=== PATIENT | male | born 1990 | race Caucasian/White ===

== ENCOUNTER 2016-12-09 18:37 | Emergency (ER) | payer OTHER ==
--- NOTE | 2016-12-09 19:05 | EDM.PDOC ---
ED HPI GENERAL MEDICAL PROBLEM - General Chief Complaint: Lower Extremity Injury/Pain Stated Complaint: RIGHT ANKLE PAIN Time Seen by Provider: 12/09/16 18:54 Source of Information: Reports: Patient History Limitations: Reports: No Limitations - History of Present Illness INITIAL COMMENTS - FREE TEXT/NARRATIVE: HISTORY AND PHYSICAL: []26-year-old male presenting with right ankle pain History of Present Illness:" []Last night while stepping out of the bathtub he slipped on the wet floor and the "outside of his ankle hit the toilet" He continues to have pain to this area Review of Systems: As per history of present illness and below otherwise all systems reviewed and negative. Past medical history: As per history of present illness and as reviewed below otherwise noncontributory. Surgical history: As per history of present illness and as reviewed below otherwise noncontributory. Social history: No reported history of drug or alcohol abuse. Family history: As per history of present illness and as reviewed below otherwise noncontributory. Physical exam: Alert and over dramatic male, answers questions appropriately HEENT: Atraumatic, normocehpalic, pupils reactive, negative for conjunctival pallor or scleral icterus, mucous membranes moist, throat clear, neck supple, nontender, trachea midline. Lungs: Clear to auscultation, breath sounds equal bilaterally, chest non tender. Heart: S1S2, regular, negative for clicks, rubs, or JVD. Abdomen: Soft, nondistended, nontender. Negative for masses or hepatossplenmegaly. Negative for costovertebral tenderness. Pelvis: Stable nontender. Genitourinary: Deferred. Rectal: Deferred Extremities: Mild edema to the lateral malleolus, exquisitely tender upon palpation, flexion and extension of present, pedal pulses present, sensation intact, negative for cords or calf pain. Neurovascular unremarkable. Neuro: Awake, alert, oriented. Cranial nerves II through XII unremarkable. Cerebellum unremarkable. Motor and sensory unremarkable throughout. Exam nonfocal. Diagnostics: [X-ray right ankle] Therapeutics: [] Impression: Contusion right ankle] Plan: [Home anti-inflammatories Ice and elevate as needed follow-up with your primary care provider next week ] Definitive disposition and diagnosis as appropriate pending reevaluation and review of above. Onset: Sudden (Yesterday) Duration: Day(s): (1) Location: Reports: Lower Extremity, Right right ankle Pain Score (Numeric/FACES): 8 - Related Data Allergies Allergy/AdvReac Type Severity Reaction Status Date / Time cefaclor [From Ceclor] Allergy Hives Verified 12/09/16 18:51 Home Meds: Home Meds . [No Known Home Meds] 12/22/15 [History] Past Medical History - Past Health History Medical/Surgical History: Denies Medical/Surgical History - Past Surgical History GI Surgical History: Reports: Hernia Repair/Other Social & Family History - Family History Family Medical History: Noncontributory - Tobacco Use Smoking Status *Q: Current Every Day Smoker Years of Tobacco use: 8 Packs/Tins Daily: 0.5 - Recreational Drug Use Recreational Drug Use: No Review of Systems - Review of Systems Review Of Systems: ROS reveals no pertinent complaints other than HPI. ED EXAM, GENERAL - Physical Exam Exam: See Below (See dictation) Course - Vital Signs Last Recorded V/S: Last Vital Signs Temp 36.7 C 12/09/16 18:52 Pulse 84 12/09/16 18:52 Resp 18 12/09/16 18:52 BP 131/80 12/09/16 18:52 Pulse Ox 96 12/09/16 18:52 - Orders/Labs/Meds Orders: Active Orders 24 hr Category Date Time Status Ankle Min 3V Rt [CR] Stat Exams 12/09/16 18:41 Taken Departure - Departure Time of Disposition: 19:33 Disposition: Home, Self-Care 01 Condition: Good Clinical Impression: Contusion of right ankle Qualifiers: Encounter type: initial encounter Qualified Code(s): S90.01XA - Contusion of right ankle, initial encounter - Discharge Information Forms: ED Department Discharge Additional Instructions: The following information is given to patients seen in the emergency department who are being discharged to home. This information is to outline your options for follow-up care. We provide all patients seen in our emergency department with a follow-up referral. The need for follow-up, as well as the timing and circumstances, are variable depending upon the specifics of your emergency department visit. If you don't have a primary care physician on staff, we will provide you with a referral. We always advise you to contact your personal physician following an emergency department visit to inform them of the circumstance of the visit and for follow-up with them and/or the need for any referrals to a consulting specialist. The emergency department will also refer you to a specialist when appropriate. This referral assures that you have the opportunity for followup care with a specialist. All of these measure are taken in an effort to provide you with optimal care, which includes your followup. Under all circumstances we always encourage you to contact your private physician who remains a resource for coordinating your care. When calling for followup care, please make the office aware that this follow-up is from your recent emergency room visit. If for any reason you are refused follow-up, please contact the [facility] emergency department at and asked to speak to the emergency department charge nurse. Xzol-tss-marhshw ibuprofen 3 tablets 3 times daily Elevate and ice your ankle 3 times a day Follow-up with your primary care provider next week - My Orders Last 24 Hours: My Active Orders 12/09/16 18:41 Ankle Min 3V Rt [CR] Stat - Assessment/Plan Last 24 Hours: My Active Orders 12/09/16 18:41 Ankle Min 3V Rt [CR] Stat
[2016-12-09 19:47] VITALS: BP 138/79
--- NOTE | 2016-12-10 10:02 | CR ---
EXAM DATE: 12/09/16 PATIENT'S AGE: 26 Patient: ALLAN GARZA Facility: [place], [place] Site . Site : 1990 Study: XRay Extremity ankle [id number]/[id number] 7:07:42 PM Ordering Physician: Doctor Rascon Final Report: Indication: Fell in shower Technique: Three views right ankle Comparison: None Findings: Bones: Alignment is normal. No fractures or bone lesions. Joint spaces: Unremarkable. Soft tissues: Unremarkable. Impression: Negative. Dictated by Evette Matthews MD @ Dec 09 2016 7:28PM (Electronic Signature) Report Signed by Proxy. IAN
== END 2016-12-09 19:42 | disposition home or self-care (01) ==
LOC: MW.ED 18:37
DX: S90.01XA Contusion of right ankle, initial encounter (principal); F17.210 Nicotine dependence, cigarettes, uncomplicated; Z98.890 Other specified postprocedural states; W01.198A Fall on same level from slipping, tripping and stumbling with subsequent striking against other object, initial encounter
CPT/HCPCS: 73610-26-RT; 73610-RT; 99282; 99283

== ENCOUNTER 2016-12-16 05:16 | Emergency (ER) | payer OTHER ==
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
[2016-12-16 06:01] VITALS: BP 134/82
== END 2016-12-16 05:55 ==
LOC: MW.ED 05:16
DX: Z02.89 Encounter for other administrative examinations (principal); I10 Essential (primary) hypertension; Z98.890 Other specified postprocedural states; Z88.1 Allergy status to other antibiotic agents
CPT/HCPCS: 82962; 99282; 99283

== ENCOUNTER 2017-01-01 02:56 | Emergency (ER) | payer OTHER ==
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
[2017-01-01 03:13] VITALS: BP 122/69
== END 2017-01-01 03:28 ==
LOC: MW.ED 02:56
DX: S02.5XXA Fracture of tooth (traumatic), initial encounter for closed fracture (principal); S01.511A Laceration without foreign body of lip, initial encounter; S09.93XA Unspecified injury of face, initial encounter; S70.311A Abrasion, right thigh, initial encounter; Z88.1 Allergy status to other antibiotic agents; X58.XXXA Exposure to other specified factors, initial encounter
CPT/HCPCS: 99283; 99284

== ENCOUNTER 2017-01-15 07:46 | Inpatient (IN) | payer OTHER ==
[2017-01-15] MEDS ORDERED: Sodium Chloride 0.9% 1,000 ML IV ONE (07:59)
[2017-01-15] MEDS ORDERED: HYDROmorphone 1 MG/ML Syringe IM ONE ×2 (08:00→11:40)
[2017-01-15] MEDS ORDERED: HYDROmorphone 1 MG/ML Syringe IVPUSH STA (08:16)
--- NOTE | 2017-01-15 08:24 | EDM.PDOC ---
ED HPI GENERAL MEDICAL PROBLEM - General Chief Complaint: Skin Complaint Stated Complaint: SWOLLEN LEFT HAND Time Seen by Provider: 01/15/17 08:09 Source of Information: Reports: Patient History Limitations: Reports: No Limitations - History of Present Illness INITIAL COMMENTS - FREE TEXT/NARRATIVE: HISTORY AND PHYSICAL: History of present illness: This is a 26-year-old male presenting to the emergency department complaining of left fifth digit pain and swelling for the past 1-2 days now. She tells me that it began with a possible spider bite, and it progressively began to swell more and more to the point where he can't flex or extend his finger. Complains of pain about 8 out of 10. Denies any numbness or tingling, denies any wrist pain. Denies any other joint pain. Otherwise, denies any chest pain shortness of breath nausea or vomiting. Denies any fevers or chills. Review of systems: As per history of present illness and below otherwise all systems reviewed and negative. Past medical history: As per history of present illness and as reviewed below otherwise noncontributory. Surgical history: As per history of present illness and as reviewed below otherwise noncontributory. Social history: No reported history of drug or alcohol abuse. Family history: As per history of present illness and as reviewed below otherwise noncontributory. Physical exam: HEENT: Atraumatic, normocephalic, pupils reactive, negative for conjunctival pallor or scleral icterus, mucous membranes moist, throat clear, neck supple, nontender, trachea midline. Lungs: Clear to auscultation, breath sounds equal bilaterally, chest nontender. Heart: S1S2, regular, negative for clicks, rubs, or JVD. Abdomen: Soft, nondistended, nontender. Negative for masses or hepatosplenomegaly. Negative for costovertebral tenderness. Pelvis: Stable nontender. Genitourinary: Deferred. Rectal: Deferred. Extremities: Significantly Indurated, erythematous left hand fifth digit extending over onto the dorsal aspect of the hand towards the wrist. Flexion extension at the wrist appears to be intact along with the remaining digits. Neuro: Awake, alert, oriented. Cranial nerves II through XII unremarkable. Cerebellum unremarkable. Motor and sensory unremarkable throughout. Exam nonfocal. Diagnostics: CBC CMP left hand x-ray, PT/INR, blood cultures, lactic acid, urine drug screen Therapeutics: 0.5 Dilaudid IV IV normal saline bolus IV vancomycin Impression: Left hand cellulitis of the fifth digit Plan: Admit to observation for IV antibiotics. Case was discussed with the resident physician who agrees to take this patient for further management. Left Hand Pain Score (Numeric/FACES): 8 - Related Data Allergies Allergy/AdvReac Type Severity Reaction Status Date / Time cefaclor [From [facility]] Allergy Hives Verified 01/15/17 07:58 CDT Home Meds: Home Meds . [No Known Home Meds] 12/22/15 [History] Past Medical History - Past Health History Medical/Surgical History: Denies Medical/Surgical History HEENT History: Reports: None Cardiovascular History: Reports: Hypertension Respiratory History: Reports: None Gastrointestinal History: Reports: None Genitourinary History: Reports: None Musculoskeletal History: Reports: None Neurological History: Reports: None Psychiatric History: Reports: None Endocrine/Metabolic History: Reports: None Hematologic History: Reports: None Immunologic History: Reports: None Oncologic (Cancer) History: Reports: None Dermatologic History: Reports: None - Infectious Disease History Infectious Disease History: Reports: Chicken Pox - Past Surgical History Cardiovascular Surgical History: Reports: None GI Surgical History: Reports: Hernia Repair/Other Social & Family History - Family History Family Medical History: Noncontributory - Tobacco Use Smoking Status *Q: Current Every Day Smoker Years of Tobacco use: 5 Packs/Tins Daily: 0.5 Second Hand Smoke Exposure: No - Caffeine Use Caffeine Use: Reports: Coffee Caffeine Use Comment: 1cup/day - Recreational Drug Use Recreational Drug Use: No Recreational Drug Type: Reports: Marijuana/Hashish, Xanax ED ROS GENERAL - Review of Systems Review Of Systems: See Below (See history of present illness) ED EXAM, SKIN/RASH Exam: See Below (See history of present illness) Exam Limited By: No Limitations General Appearance: Alert, WD/WN, No Apparent Distress Ears: Normal External Exam, Normal Canal, Hearing Grossly Normal, Normal TMs Nose: Normal Inspection, Normal Mucosa, No Blood Throat/Mouth: Normal Inspection, Normal Lips, Normal Teeth, Normal Gums, Normal Oropharynx, Normal Voice, No Airway Compromise Head: Atraumatic, Normocephalic Neck: Normal Inspection, Supple, Non-Tender, Full Range of Motion Respiratory/Chest: No Respiratory Distress, Lungs Clear, Normal Breath Sounds, No Accessory Muscle Use, Chest Non-Tender Cardiovascular: Normal Peripheral Pulses, Regular Rate, Rhythm, No Edema, No Gallop, No JVD, No Murmur, No Rub GI/Abdominal: Normal Bowel Sounds, Soft, Non-Tender, No Organomegaly, No Distention, No Abnormal Bruit, No Mass (Male) Exam: No Hernia, Normal Inspection, Normal Prostate, Circumcised Rectal (Males) Exam: Normal Exam, Normal Rectal Tone, Prostate Normal Back Exam: Normal Inspection, Full Range of Motion, NT Extremities: Normal Inspection, Normal Range of Motion, Non-Tender, No Pedal Edema, Normal Capillary Refill Neurological: Alert, Oriented, CN II-XII Intact, Normal Cognition, Normal Gait, Normal Reflexes, No Motor/Sensory Deficits Psychiatric: Normal Affect, Normal Mood Lymphatic: No Adenopathy Course - Vital Signs Text/Narrative:: This is a 26-year-old male presented to the emergency department with chief complaint of fifth digit left hand pain and swelling for the past day. On physical exam given the extensive induration and erythema around the dorsal aspect of the fifth digit extending down towards the wrist, and surgery was consult to who came down to the ER and examine the patient in person and recommended observation and IV antibiotics. Patient agreed to the plan and passes ultimately admitted to the hospitalist for observation. Hand x-ray was taken in the ER indicating no gas pattern or acute fracture. Last Recorded V/S: Last Vital Signs Temp 36.2 C 01/15/17 11:58 CDT Pulse 84 01/15/17 11:58 CDT Resp 20 01/15/17 11:58 CDT BP 135/97 H 01/15/17 11:58 CDT Pulse Ox 98 01/15/17 11:58 CDT - Orders/Labs/Meds Orders: Medication Orders Acetaminophen (Tylenol) 650 mg PO Q4H PRN PRN Reason: Pain (Mild 1-3)/fever Enoxaparin Sodium (Lovenox) 40 mg SUBCUT DAILY [facility] Last Admin: 01/15/17 12:25 CDT Dose: 40 mg Hydromorphone HCl (Dilaudid) 1 mg IVPUSH Q4H PRN PRN Reason: Pain (severe 7-10) Sodium Chloride (Normal Saline) 1,000 mls @ 125 mls/hr IV NOW STA Stop: 01/15/17 17:14 CDT Last Admin: 01/15/17 09:16 CDT Dose: 125 mls/hr Piperacillin Sod/Tazobactam (Sod 3.375 gm/ Sodium Chloride) 50 mls @ 100 mls/ hr IV Q6H [facility] Last Admin: 01/15/17 12:24 CDT Dose: 100 mls/hr Vancomycin HCl 1 gm/ Sodium (Chloride) 250 mls @ 166.667 mls/hr IV Q8H [facility] Last Admin: 01/15/17 12:56 CDT Dose: 166.667 mls/hr Nicotine (Habitrol) 21 mg TRDERM DAILY [facility] Last Admin: 01/15/17 12:20 CDT Dose: 21 mg Ondansetron HCl (Zofran Odt) 4 mg PO Q4H PRN PRN Reason: nausea, able to take PO Vancomycin HCl (Pharmacy To Dose - Vancomycin) 1 dose .XX ASDIRECTED [facility] Labs: Laboratory Tests 01/15/17 Range/Units 08:08 CDT Lactate 1.6 (0.20-2.00) mmol/L Meds: Medications Generic Name Dose Route Start Last Admin Trade Name Freq PRN Reason Stop Dose Admin Acetaminophen 650 mg 01/15/17 11:40 CDT Tylenol PO Q4H PRN Pain (Mild 1-3)/fever Enoxaparin Sodium 40 mg 01/15/17 11:45 CDT 01/15/17 12:25 CDT Lovenox SUBCUT 40 mg DAILY [facility] Administration Hydromorphone HCl 1 mg 01/15/17 11:40 CDT Dilaudid IVPUSH Q4H PRN Pain (severe 7-10) Sodium Chloride 1,000 mls @ 125 mls/hr 01/15/17 09:15 CDT 01/15/17 09:16 CDT Normal Saline IV 01/15/17 17:14 CDT 125 mls/hr NOW STA Administration Piperacillin Sod/Tazobactam 50 mls @ 100 mls/hr 01/15/17 12:00 CDT 01/15/17 12:24 CDT Sod 3.375 gm/ Sodium Chloride IV 100 mls/hr Q6H [facility] Administration Vancomycin HCl 1 gm/ Sodium 250 mls @ 166.667 mls/hr 01/15/17 12:30 CDT 01/15 12:56 CDT Chloride IV 166.667 mls/hr Q8H [facility] Administration Nicotine 21 mg 01/15/17 11:45 CDT 01/15/17 12:20 CDT Habitrol TRDERM 21 mg DAILY [facility] Administration Ondansetron HCl 4 mg 01/15/17 11:40 CDT Zofran Odt PO Q4H PRN nausea, able to take PO Vancomycin HCl 1 dose 01/15/17 11:45 CDT Pharmacy To Dose - Vancomycin .XX ASDIRECTED [facility] Discontinued Medications Generic Name Dose Route Start Last Admin Trade Name Freq PRN Reason Stop Dose Admin Hydromorphone HCl 0.5 mg 01/15/17 08:16 CDT 01/15/17 08:16 CDT Dilaudid IVPUSH 01/15/17 08:17 CDT 0.5 mg NOW STA Administration Hydromorphone HCl 1 mg 01/15/17 11:40 CDT 01/15/17 12:17 CDT Dilaudid IM 01/15/17 11:41 CDT Not Given ONETIME ONE Hydromorphone HCl 1 mg 01/15/17 12:12 CDT 01/15/17 12:14 CDT Dilaudid IVPUSH 01/15/17 12:13 CDT 1 mg ONETIME ONE Administration Sodium Chloride 1,000 mls @ 999 mls/hr 01/15/17 07:59 CDT 01/15/17 08:23 CDT Normal Saline IV 01/15/17 08:59 CDT 999 mls/hr STAT ONE Administration Vancomycin HCl 1 gm/ Sodium 250 mls @ 250 mls/hr 01/15/17 08:23 CDT 01/15/17 09:17 CDT Chloride IV 01/15/17 09:22 CDT 250 mls/hr ONETIME ONE Administration Naloxone HCl 0.4 mg 01/15/17 09:24 CDT 01/15/17 10:01 CDT Narcan IVPUSH 01/15/17 09:25 CDT Not Given ONETIME ONE Departure - Departure Time of Disposition: 10:30 Disposition: Refer to Observation Condition: Fair Clinical Impression: Cellulitis of finger of left hand - Discharge Information
--- NOTE | 2017-01-15 08:46 | CR ---
EXAMINATION: Left hand HISTORY: Cellulitis COMPARISON: None TECHNIQUE: 2 views FINDINGS/IMPRESSION: There is no acute osseous abnormality, dislocation, or fracture. The cortical ma rgin of the distal fifth phalanx on the lateral view appears concave, however well-corticated, possib ly secondary to an old injury. There is overlying soft tissue swelling within the fat within the righ t aspect of the hand and within the fifth digit without underlying gas or foreign body.
[2017-01-15 09:00] LABS: CHLORIDE,CL 106 mmol/L (98-110); SODIUM,NA 139 mmol/L (136-146)
[2017-01-15] MEDS ORDERED: Sodium Chloride 0.9% 1,000 ML IV STA (09:15)
[2017-01-15] MEDS ORDERED: Naloxone 0.4 MG/ML Syringe IVPUSH ONE (09:24)
--- NOTE | 2017-01-15 11:55 | PCM.HP ---
H&P History of Present Illness - General Date of Service: 01/15/17 Admit Problem/Dx: Admission Diagnosis/Problem Admission Diagnosis/Problem Cellulitis Source of Information: Patient History Limitations: Reports: No Limitations - History of Present Illness Initial Comments - Free Text/Narative: 26-year-old male that is being admitted with cellulitis of the fifth digit of the left hand. Patient presented to the emergency room complaining of swelling and redness to the fifth digit of the left hand over the last 2 days that has been worsening. Patient cannot recall any trauma or injuries to the fifth digit. He notes pain in this digit only and denies any pain in his left wrist or other fingers. He has no history of cellulitis. He denies any history of IV drug use. Pain is described as 8 out of 10. He has had a fever over the last few days. He has been using only Tylenol or ibuprofen for pain relief. This has not helped. Apart from the acute pain he is experiencing, he denies any other concerns including headache, dizziness, chest pain, palpitations, shortness breath, wheezing, cough, abdominal pain, nausea, vomiting, cuts patient, diarrhea. ER course: Patient received a dose of Dilaudid in the emergency room secondary to pain. He also received an IV fluid bolus and was started on maintenance fluids at 125 mL/ hour. He was given 1 dose of vancomycin. Blood cultures were obtained. Drug screen was positive for benzodiazepines and marijuana. White blood cell count was elevated at 14,000. Lactate was normal at 1.6. CMP was unremarkable. Left hand x-ray showed soft tissue swelling at the fifth digit and no evidence of bone involvement, gas or evidence of a foreign body. Dr. Leon, plastic surgeon , was consulted on the case and does not believe that surgical intervention is needed at this time. Left Hand Pain Score (Numeric/FACES): 7 - Related Data Allergies/Adverse Reactions: Allergies Allergy/AdvReac Type Severity Reaction Status Date / Time cefaclor [From [facility]] Allergy Hives Verified 01/15/17 07:58 Home Medications: Home Meds . [No Known Home Meds] 12/22/15 [History] Past Medical History - Past Health History Medical/Surgical History: Denies Medical/Surgical History HEENT History: Reports: None Cardiovascular History: Reports: Hypertension Respiratory History: Reports: None Gastrointestinal History: Reports: None Genitourinary History: Reports: None Musculoskeletal History: Reports: None Neurological History: Reports: None Psychiatric History: Reports: None Endocrine/Metabolic History: Reports: None Hematologic History: Reports: None Immunologic History: Reports: None Oncologic (Cancer) History: Reports: None Dermatologic History: Reports: None - Infectious Disease History Infectious Disease History: Reports: Chicken Pox - Past Surgical History Cardiovascular Surgical History: Reports: None GI Surgical History: Reports: Hernia Repair/Other Social & Family History - Family History Family Medical History: Noncontributory - Tobacco Use Smoking Status *Q: Current Every Day Smoker Years of Tobacco use: 7 Packs/Tins Daily: 0.5 Second Hand Smoke Exposure: Yes - Caffeine Use Caffeine Use: Reports: None Caffeine Use Comment: 1cup/day - Alcohol Use Days Per Week of Alcohol Use: 1 Number of Drinks Per Day: 0 Total Drinks Per Week: 0 Date of Last Drink: 01/13/17 Time of Last Drink: 18:00 - Recreational Drug Use Recreational Drug Use: No Recreational Drug Type: Reports: Marijuana/Hashish, Xanax H&P Review of Systems - Review of Systems: Review Of Systems: See Below General: Reports: Fever HEENT: Reports: No Symptoms Pulmonary: Reports: No Symptoms Cardiovascular: Reports: No Symptoms Gastrointestinal: Reports: No Symptoms Genitourinary: Reports: No Symptoms Musculoskeletal: Reports: Other (Pain, redness and swelling at the left fifth digit ) Skin: Reports: No Symptoms Psychiatric: Reports: No Symptoms Neurological: Reports: No Symptoms Hematologic/Lymphatic: Reports: No Symptoms Immunologic: Reports: No Symptoms Exam - Exam Exam: See Below - Vital Signs Vital Signs: Last Vital Signs Temp 98 F 01/15/17 10:20 Pulse 85 01/15/17 10:20 Resp 20 01/15/17 10:20 BP 130/84 01/15/17 10:20 Pulse Ox 98 01/15/17 10:20 Weight: 154 lb 5.177 oz - Exam Quality Assessment: DVT Prophylaxis (Lovenox, SCDs) General: Alert, Oriented, Cooperative HEENT: Conjunctiva Clear, Hearing Intact, Mucosa Moist & [place], Nares Patent Neck: Supple, Trachea Midline, 2 Lungs: Clear to Auscultation, Normal Respiratory Effort Cardiovascular: Regular Rate, Regular Rhythm GI/Abdominal Exam: Normal Bowel Sounds, Soft, Non-Tender, No Organomegaly, No Distention, No Abnormal Bruit, No Mass Extremities: Other (The left hand is edematous up to the wrist. The left fifth digit is erythematous and the patient has a difficult time with flexion or extension of the digit. There is warmth to palpation of this digit. Patient is able to flex and extend his left wrist. No other joints appear to be edematous, erythematous or warm to palpation. I do not appreciate any breaks in the skin.) Peripheral Pulses: 2+: Radial (L), Radial (R), Posterior Tibial (L), Posterior Tibial (R) Skin: Other (Redness and warmth with palpation over the left fifth digit.) Neuro Extensive - Mental Status: Alert, Oriented x3, Normal Mood/Affect, Normal Cognition Psychiatric: Alert, Normal Affect, Normal Mood - Patient Data Lab Results Last 24 hrs: Laboratory Results - last 24 hr 01/15/17 01/15/17 01/15/17 Range/Units 08:28 08:28 08:28 WBC 14.33 H (4.0-11.0) K/uL RBC 4.86 (4.50-5.90) M/uL Hgb 15.4 (13.0-17.0) g/dL Hct 43.8 (38.0-50.0) % MCV 90.1 (80.0-98.0) fL MCH 31.7 (27.0-32.0) pg MCHC 35.2 (31.0-37.0) g/dL RDW Std Deviation 43.6 (28.0-62.0) fl RDW Coeff of Jovanni 13 (11.0-15.0) % Plt Count 358 (150-400) K/uL MPV 8.90 (7.40-12.00) fL Neut % (Auto) 67.3 (48.0-80.0) % Lymph % (Auto) 18.8 (16.0-40.0) % Crisp % (Auto) 12.1 (0.0-15.0) % Eos % (Auto) 1.7 (0.0-7.0) % Baso % (Auto) 0.1 (0.0-1.5) % Neut # (Auto) 9.6 H (1.4-5.7) K/uL Lymph # (Auto) 2.7 H (0.6-2.4) K/uL Crisp # (Auto) 1.7 H (0.0-0.8) K/uL Eos # (Auto) 0.2 (0.0-0.7) K/uL Baso # (Auto) 0.0 (0.0-0.1) K/uL Nucleated RBC % 0.0 /100WBC Nucleated RBCs # 0 K/uL INR 0.97 (0.86-1.11) Sodium 139 (136-146) mmol/L Potassium 4.0 (3.5-5.1) mmol/L Chloride 106 (98-110) mmol/L Carbon Dioxide 21 (21-31) mmol/L BUN 10 (6.0-23.0) mg/dL Creatinine 0.8 (0.6-1.5) mg/dL Est Cr Clr Drug Dosing 125.16 mL/min Estimated GFR (MDRD) > 60.0 ml/min Glucose 109 (60-110) mg/dL Calcium 9.1 (8.8-10.8) mg/dL Total Bilirubin 0.2 (0.1-1.5) mg/dL AST 17 (5-40) IU/L ALT 16 (8-54) IU/L Alkaline Phosphatase 78 (40-150) Total Protein 6.6 (6.0-8.0) g/dL Albumin 4.1 (3.5-5.0) g/dL Globulin 2.5 (2.0-3.5) g/dL Albumin/Globulin Ratio 1.6 (1.3-2.8) Urine Opiates Screen (NEGATIVE) Ur Oxycodone Screen (NEGATIVE) Urine Methadone Screen (NEGATIVE) Ur Barbiturates Screen (NEGATIVE) Ur Phencyclidine Scrn (NEGATIVE) Ur Amphetamine Screen (NEGATIVE) U Methamphetamines Scrn (NEGATIVE) U Benzodiazepines Scrn (NEGATIVE) U Cocaine Metab Screen (NEGATIVE) U Marijuana (THC) Screen (NEGATIVE) 01/15/17 Range/Units 08:40 WBC (4.0-11.0) K/uL RBC (4.50-5.90) M/uL Hgb (13.0-17.0) g/dL Hct (38.0-50.0) % MCV (80.0-98.0) fL MCH (27.0-32.0) pg MCHC (31.0-37.0) g/dL RDW Std Deviation (28.0-62.0) fl RDW Coeff of Jovanni (11.0-15.0) % Plt Count (150-400) K/uL MPV (7.40-12.00) fL Neut % (Auto) (48.0-80.0) % Lymph % (Auto) (16.0-40.0) % Crisp % (Auto) (0.0-15.0) % Eos % (Auto) (0.0-7.0) % Baso % (Auto) (0.0-1.5) % Neut # (Auto) (1.4-5.7) K/uL Lymph # (Auto) (0.6-2.4) K/uL Crisp # (Auto) (0.0-0.8) K/uL Eos # (Auto) (0.0-0.7) K/uL Baso # (Auto) (0.0-0.1) K/uL Nucleated RBC % /100WBC Nucleated RBCs # K/uL INR (0.86-1.11) Sodium (136-146) mmol/L Potassium (3.5-5.1) mmol/L Chloride (98-110) mmol/L Carbon Dioxide (21-31) mmol/L BUN (6.0-23.0) mg/dL Creatinine (0.6-1.5) mg/dL Est Cr Clr Drug Dosing mL/min Estimated GFR (MDRD) ml/min Glucose (60-110) mg/dL Calcium (8.8-10.8) mg/dL Total Bilirubin (0.1-1.5) mg/dL AST (5-40) IU/L ALT (8-54) IU/L Alkaline Phosphatase (40-150) Total Protein (6.0-8.0) g/dL Albumin (3.5-5.0) g/dL Globulin (2.0-3.5) g/dL Albumin/Globulin Ratio (1.3-2.8) Urine Opiates Screen NEGATIVE (NEGATIVE) Ur Oxycodone Screen NEGATIVE (NEGATIVE) Urine Methadone Screen NEGATIVE (NEGATIVE) Ur Barbiturates Screen NEGATIVE (NEGATIVE) Ur Phencyclidine Scrn NEGATIVE (NEGATIVE) Ur Amphetamine Screen NEGATIVE (NEGATIVE) U Methamphetamines Scrn NEGATIVE (NEGATIVE) U Benzodiazepines Scrn POSITIVE (NEGATIVE) U Cocaine Metab Screen NEGATIVE (NEGATIVE) U Marijuana (THC) Screen POSITIVE (NEGATIVE) Result Diagrams: 01/15/17 08:28 01/15/17 08:28 *Q Meaningful Use (ADM) - VTE *Q VTE Criteria *Q: - Stroke *Q Stroke Criteria *Q: - AMI *Q AMI Criteria *Q: - Problem List (1) Cellulitis of hand, left SNOMED Code(s): 10445362 ICD Code: L03.114 - CELLULITIS OF LEFT UPPER LIMB Status: Acute Current Visit: Yes Problem List Initiated/Reviewed/Updated: Yes Orders Last 24hrs: Active Orders 24 hr Category Date Time Status Patient Status [ADT] Routine ADT 01/15/17 08:24 Active Antiembolic Devices [RC] PER UNIT ROUTINE Care 01/15/17 11:43 Ordered Height and Weight [RC] DAILY Care 01/15/17 11:40 Ordered Intake and Output [RC] QSHIFT Care 01/15/17 11:41 Ordered Notify Provider Consults [RC] ASDIRECTED Care 01/15/17 11:36 Active Notify Provider Vital Signs [RC] ASDIRECTED Care 01/15/17 11:41 Ordered Oxygen Therapy [RC] PRN Care 01/15/17 11:40 Ordered Pulse Oximetry [RC] PRN Care 01/15/17 11:41 Ordered Up ad Linda [RC] ASDIRECTED Care 01/15/17 11:40 Ordered VTE/DVT Education [RC] PER UNIT ROUTINE Care 01/15/17 11:40 Ordered Vital Signs [RC] Q4H Care 01/15/17 11:40 Ordered Consult to Physician [CONS] Stat Cons 01/15/17 07:30 Active Regular Diet [DIET] Diet 01/15/17 Breakfast Ordered BASIC METABOLIC PANEL,BMP [CHEM] AM Lab 01/16/17 05:11 Ordered BASIC METABOLIC PANEL,BMP [CHEM] AM Lab 01/17/17 05:11 Ordered BASIC METABOLIC PANEL,BMP [CHEM] AM Lab 01/18/17 05:11 Ordered CBC WITH AUTO DIFF [HEME] AM Lab 01/16/17 05:11 Ordered CBC WITH AUTO DIFF [HEME] AM Lab 01/17/17 05:11 Ordered CBC WITH AUTO DIFF [HEME] AM Lab 01/18/17 05:11 Ordered Acetaminophen [Tylenol] Med 01/15/17 11:40 Ordered 650 mg PO Q4H PRN Enoxaparin [Lovenox] Med 01/15/17 11:45 Ordered 40 mg SUBCUT DAILY HYDROmorphone [Dilaudid] Med 01/15/17 11:40 Ordered 1 mg IVPUSH Q4H PRN Nicotine [Habitrol] Med 01/15/17 11:45 Ordered 21 mg TRDERM DAILY Ondansetron [Zofran ODT] Med 01/15/17 11:40 Ordered 4 mg PO Q4H PRN Piperacillin/Tazobactam [Piperacil-Tazobact] 3.375 gm Med 01/15/17 11:45 Ordered Sodium Chloride 0.9% [Normal Saline] 50 ml IV Q6H Sodium Chloride 0.9% [Normal Saline] 1,000 ml Med 01/15/17 09:15 Active IV NOW Vancomycin Pharmacy to Dose [Pharmacy to Dose - Med 01/15/17 11:45 Ordered Vancomycin] 1 dose .XX ASDIRECTED Sequential Compression Device [OM.PC] Per Unit Routine Oth 01/15/17 11:42 Ordered Resuscitation Status Routine Resus Stat 01/15/17 11:40 Ordered Medication Orders Acetaminophen (Tylenol) 650 mg PO Q4H PRN PRN Reason: Pain (Mild 1-3)/fever Enoxaparin Sodium (Lovenox) 40 mg SUBCUT DAILY [facility] Hydromorphone HCl (Dilaudid) 1 mg IVPUSH Q4H PRN PRN Reason: Pain (severe 7-10) Sodium Chloride (Normal Saline) 1,000 mls @ 125 mls/hr IV NOW STA Stop: 01/15/17 17:14 Last Admin: 01/15/17 09:16 Dose: 125 mls/hr Piperacillin Sod/Tazobactam (Sod 3.375 gm/ Sodium Chloride) 50 mls @ 100 mls/ hr IV Q6H [facility] Nicotine (Habitrol) 21 mg TRDERM DAILY [facility] Ondansetron HCl (Zofran Odt) 4 mg PO Q4H PRN PRN Reason: nausea, able to take PO Vancomycin HCl (Pharmacy To Dose - Vancomycin) 1 dose .XX ASDIRECTED [facility] Assessment/Plan Comment:: 26-year-old male admitted with cellulitis of the fifth digit of the left hand. #1. Cellulitis of fifth digit of the left hand: -Patient will be started on vancomycin and Zosyn. White blood cell count is elevated at 14,000. Repeat CBC in the morning. -IV Dilaudid available for pain management. Will switch to by mouth once pain is better controlled. -Blood cultures are pending. Lactate was normal. -Dr. Leon, plastic surgery, was consult did and does not believe that surgical intervention is needed at this time. DVT prophylaxis: Anamaria Mcfarland Discharge: 2-4 days pending improvement
[2017-01-15] MEDS ORDERED: HYDROmorphone 1 MG/ML Syringe IVPUSH ONE (12:12)
[2017-01-15] MEDS: Nicotine 21 MG/24 Hr Patch TRDERM SCH (12:20)
[2017-01-15] MEDS: Piperacillin/Tazobactam 3.375 GM in Sodium Chloride 0.9% 50 ML IV SCH ×3 (12:24→23:25)
[2017-01-15] MEDS: Enoxaparin 40 MG/0.4 ML Syringe SUBCUT SCH (12:25)
--- NOTE | 2017-01-15 14:26 | PCM.CONS ---
H&P History of Present Illness - General Admit Problem/Dx: Admission Diagnosis/Problem Admission Diagnosis/Problem Cellulitis Source of Information: Patient, EMS, Provider - History of Present Illness Initial Comments - Free Text/Narative: Redness and swelling of the left small finger dorsally. Quick onset. History of mrsa in the left eye about a year ago. No volar involvement of the finger or hand. Discussed no surgical intervention at this time for the cellulitis. No lymphangitis. I would recommend antibiotics and observation. Discussed with patient. Onset of Symptoms: Reports: Sudden Symptom Onset Date: 01/14/17 Duration of Symptoms: Reports: Day(s): (1), Getting Worse Location: Reports: Upper Extremity, Left Quality: Reports: Ache, Throbbing Severity: Severe Improves with: Reports: Immobilization Worsens with: Reports: Movement Associated Symptoms: Reports: No Other Symptoms Left Hand Pain Score (Numeric/FACES): 8 - Related Data Allergies/Adverse Reactions: Allergies Allergy/AdvReac Type Severity Reaction Status Date / Time cefaclor [From Ceclor] Allergy Hives Verified 01/15/17 07:58 Home Medications: Home Meds . [No Known Home Meds] 12/22/15 [History] Past Medical History - Past Health History Medical/Surgical History: Denies Medical/Surgical History HEENT History: Reports: None Cardiovascular History: Reports: Hypertension Respiratory History: Reports: None Gastrointestinal History: Reports: None Genitourinary History: Reports: None Musculoskeletal History: Reports: None Neurological History: Reports: None Psychiatric History: Reports: None Endocrine/Metabolic History: Reports: None Hematologic History: Reports: None Immunologic History: Reports: None Oncologic (Cancer) History: Reports: None Dermatologic History: Reports: None - Infectious Disease History Infectious Disease History: Reports: Chicken Pox - Past Surgical History Cardiovascular Surgical History: Reports: None GI Surgical History: Reports: Hernia Repair/Other Social & Family History - Family History Family Medical History: Noncontributory - Tobacco Use Smoking Status *Q: Current Every Day Smoker Years of Tobacco use: 5 Packs/Tins Daily: 0.5 Second Hand Smoke Exposure: No - Caffeine Use Caffeine Use: Reports: Coffee Caffeine Use Comment: 1cup/day - Alcohol Use Days Per Week of Alcohol Use: 1 Number of Drinks Per Day: 0 Total Drinks Per Week: 0 Date of Last Drink: 01/13/17 Time of Last Drink: 18:00 - Recreational Drug Use Recreational Drug Use: No Recreational Drug Type: Reports: Marijuana/Hashish, Xanax H&P Review of Systems - Review of Systems: Review Of Systems: See Below General: Reports: No Symptoms. Denies: Fever Pulmonary: Reports: No Symptoms Cardiovascular: Reports: No Symptoms Psychiatric: Reports: Anxiety, Other (denies IV drug use) Immunologic: Reports: No Symptoms Exam - Exam Exam: See Below - Vital Signs Vital Signs: Last Vital Signs Temp 97.2 F 01/15/17 11:58 Pulse 84 01/15/17 11:58 Resp 20 01/15/17 11:58 BP 135/97 H 01/15/17 11:58 Pulse Ox 98 01/15/17 11:58 Weight: 154 lb 5.177 oz - Exam General: Alert, Oriented, Mild Distress HEENT: EOMI Lungs: Normal Respiratory Effort Extremities: Normal Range of Motion, Other (increased swelling of the left small finger dorsally with redness. Limited to Proximal phalanx area. Tender over dorsal metacarpal but not redness yet. No lymphangitis. ) Skin: Warm, Dry, Other (redness over the small finger dorsally. No volar involvement. no volar tenderness. ). No: Rash, Wound Neuro Extensive - Mental Status: Alert, Oriented x3 Psychiatric: Alert, Anxious - Patient Data Lab Results Last 24 hrs: Laboratory Results - last 24 hr 01/15/17 01/15/17 01/15/17 Range/Units 08:28 08:28 08:28 WBC 14.33 H (4.0-11.0) K/uL RBC 4.86 (4.50-5.90) M/uL Hgb 15.4 (13.0-17.0) g/dL Hct 43.8 (38.0-50.0) % MCV 90.1 (80.0-98.0) fL MCH 31.7 (27.0-32.0) pg MCHC 35.2 (31.0-37.0) g/dL RDW Std Deviation 43.6 (28.0-62.0) fl RDW Coeff of Jovanni 13 (11.0-15.0) % Plt Count 358 (150-400) K/uL MPV 8.90 (7.40-12.00) fL Neut % (Auto) 67.3 (48.0-80.0) % Lymph % (Auto) 18.8 (16.0-40.0) % [place] % (Auto) 12.1 (0.0-15.0) % Eos % (Auto) 1.7 (0.0-7.0) % Baso % (Auto) 0.1 (0.0-1.5) % Neut # (Auto) 9.6 H (1.4-5.7) K/uL Lymph # (Auto) 2.7 H (0.6-2.4) K/uL [place] # (Auto) 1.7 H (0.0-0.8) K/uL Eos # (Auto) 0.2 (0.0-0.7) K/uL Baso # (Auto) 0.0 (0.0-0.1) K/uL Nucleated RBC % 0.0 /100WBC Nucleated RBCs # 0 K/uL INR 0.97 (0.86-1.11) Sodium 139 (136-146) mmol/L Potassium 4.0 (3.5-5.1) mmol/L Chloride 106 (98-110) mmol/L Carbon Dioxide 21 (21-31) mmol/L BUN 10 (6.0-23.0) mg/dL Creatinine 0.8 (0.6-1.5) mg/dL Est Cr Clr Drug Dosing 125.16 mL/min Estimated GFR (MDRD) > 60.0 ml/min Glucose 109 (60-110) mg/dL Calcium 9.1 (8.8-10.8) mg/dL Total Bilirubin 0.2 (0.1-1.5) mg/dL AST 17 (5-40) IU/L ALT 16 (8-54) IU/L Alkaline Phosphatase 78 (40-150) Total Protein 6.6 (6.0-8.0) g/dL Albumin 4.1 (3.5-5.0) g/dL Globulin 2.5 (2.0-3.5) g/dL Albumin/Globulin Ratio 1.6 (1.3-2.8) Urine Opiates Screen (NEGATIVE) Ur Oxycodone Screen (NEGATIVE) Urine Methadone Screen (NEGATIVE) Ur Barbiturates Screen (NEGATIVE) Ur Phencyclidine Scrn (NEGATIVE) Ur Amphetamine Screen (NEGATIVE) U Methamphetamines Scrn (NEGATIVE) U Benzodiazepines Scrn (NEGATIVE) U Cocaine Metab Screen (NEGATIVE) U Marijuana (THC) Screen (NEGATIVE) 01/15/17 Range/Units 08:40 WBC (4.0-11.0) K/uL RBC (4.50-5.90) M/uL Hgb (13.0-17.0) g/dL Hct (38.0-50.0) % MCV (80.0-98.0) fL MCH (27.0-32.0) pg MCHC (31.0-37.0) g/dL RDW Std Deviation (28.0-62.0) fl RDW Coeff of Jovanni (11.0-15.0) % Plt Count (150-400) K/uL MPV (7.40-12.00) fL Neut % (Auto) (48.0-80.0) % Lymph % (Auto) (16.0-40.0) % [place] % (Auto) (0.0-15.0) % Eos % (Auto) (0.0-7.0) % Baso % (Auto) (0.0-1.5) % Neut # (Auto) (1.4-5.7) K/uL Lymph # (Auto) (0.6-2.4) K/uL [place] # (Auto) (0.0-0.8) K/uL Eos # (Auto) (0.0-0.7) K/uL Baso # (Auto) (0.0-0.1) K/uL Nucleated RBC % /100WBC Nucleated RBCs # K/uL INR (0.86-1.11) Sodium (136-146) mmol/L Potassium (3.5-5.1) mmol/L Chloride (98-110) mmol/L Carbon Dioxide (21-31) mmol/L BUN (6.0-23.0) mg/dL Creatinine (0.6-1.5) mg/dL Est Cr Clr Drug Dosing mL/min Estimated GFR (MDRD) ml/min Glucose (60-110) mg/dL Calcium (8.8-10.8) mg/dL Total Bilirubin (0.1-1.5) mg/dL AST (5-40) IU/L ALT (8-54) IU/L Alkaline Phosphatase (40-150) Total Protein (6.0-8.0) g/dL Albumin (3.5-5.0) g/dL Globulin (2.0-3.5) g/dL Albumin/Globulin Ratio (1.3-2.8) Urine Opiates Screen NEGATIVE (NEGATIVE) Ur Oxycodone Screen NEGATIVE (NEGATIVE) Urine Methadone Screen NEGATIVE (NEGATIVE) Ur Barbiturates Screen NEGATIVE (NEGATIVE) Ur Phencyclidine Scrn NEGATIVE (NEGATIVE) Ur Amphetamine Screen NEGATIVE (NEGATIVE) U Methamphetamines Scrn NEGATIVE (NEGATIVE) U Benzodiazepines Scrn POSITIVE (NEGATIVE) U Cocaine Metab Screen NEGATIVE (NEGATIVE) U Marijuana (THC) Screen POSITIVE (NEGATIVE) Result Diagrams: 01/15/17 08:28 01/15/17 08:28 Consult PN Assessment/Plan Procedures: Procedures (1) Cellulitis of finger of left hand SNOMED Code(s): 06648483 Code(s): L03.012 - CELLULITIS OF LEFT FINGER Priority: High Current Visit : Yes Problem List Initiated/Reviewed/Updated: Yes Plan: I would recommend medical management and see no indication for surgery at this time. IV antibiotics and elevation. Requesting Provider: aleyda Consult Requested: 01/15/17 Reason for Consult: cellulitis hand Patient History Reviewed: Yes Admission H&P Reviewed: Yes Notified Requestor: Yes Time Spent (in minutes): 20
[2017-01-15] MEDS: Acetaminophen 325 MG Tab PO PRN (14:28)
[2017-01-15] MEDS: HYDROmorphone 2 MG/ML Syringe IVPUSH PRN ×2 (18:21→22:33)
[2017-01-15] MEDS: Ondansetron 4 MG Tab.DIS PO PRN (18:23)
[2017-01-16] MEDS: HYDROmorphone 2 MG/ML Syringe IVPUSH PRN ×5 (02:37→19:49)
[2017-01-16 05:44] LABS: CHLORIDE,CL 100 mmol/L (98-110); SODIUM,NA 138 mmol/L (136-146)
[2017-01-16] MEDS: Piperacillin/Tazobactam 3.375 GM in Sodium Chloride 0.9% 50 ML IV SCH ×3 (05:50→17:23)
--- NOTE | 2017-01-16 08:55 | PCM.SN ---
- Free Text/Narrative Note: Improving on antibiotics. Focalizing some. May develop and abscess that will likely be small over the proximal phalanx of the small finger. Should this focalize more we can I and D, but will wait for improvement and hopefully avoid opening a wound for him. He would like to continue antibiotics for now. All questions answered.
--- NOTE | 2017-01-16 09:03 | PCM.PN ---
- Review of Systems Systems Review Comment:: reports pain has improved - Patient Data Vitals - Most Recent: Last Vital Signs Temp 36.1 C 01/16/17 08:00 Pulse 95 01/16/17 08:00 Resp 20 01/16/17 08:00 BP 166/96 H 01/16/17 08:00 Pulse Ox 98 01/16/17 08:00 Weight - Most Recent: 70 kg I&O - Last 24 Hours: Intake & Output 01/15/17 01/16/17 01/16/17 22:59 06:59 14:59 Intake Total 1150 1050 Output Total 565 1770 Balance 875 -720 Lab Results Last 24 Hours: Laboratory Results - last 24 hr 01/15/17 01/15/17 01/16/17 Range/Units 08:28 08:40 04:55 WBC 15.07 H (4.0-11.0) K/uL RBC 4.94 (4.50-5.90) M/uL Hgb 15.7 (13.0-17.0) g/dL Hct 44.5 (38.0-50.0) % MCV 90.1 (80.0-98.0) fL MCH 31.8 (27.0-32.0) pg MCHC 35.3 (31.0-37.0) g/dL RDW Std Deviation 43.2 (28.0-62.0) fl RDW Coeff of Jovanni 13 (11.0-15.0) % Plt Count 342 (150-400) K/uL MPV 9.10 (7.40-12.00) fL Neut % (Auto) 74.8 (48.0-80.0) % Lymph % (Auto) 12.8 L (16.0-40.0) % [place] % (Auto) 10.7 (0.0-15.0) % Eos % (Auto) 1.6 (0.0-7.0) % Baso % (Auto) 0.1 (0.0-1.5) % Neut # (Auto) 11.3 H (1.4-5.7) K/uL Lymph # (Auto) 1.9 (0.6-2.4) K/uL [place] # (Auto) 1.6 H (0.0-0.8) K/uL Eos # (Auto) 0.2 (0.0-0.7) K/uL Baso # (Auto) 0.0 (0.0-0.1) K/uL Nucleated RBC % 0.0 /100WBC Nucleated RBCs # 0 K/uL Sodium 139 (136-146) mmol/L Potassium 4.0 (3.5-5.1) mmol/L Chloride 106 (98-110) mmol/L Carbon Dioxide 21 (21-31) mmol/L BUN 10 (6.0-23.0) mg/dL Creatinine 0.8 (0.6-1.5) mg/dL Est Cr Clr Drug Dosing 125.16 mL/min Estimated GFR (MDRD) > 60.0 ml/min Glucose 109 (60-110) mg/dL Calcium 9.1 (8.8-10.8) mg/dL Total Bilirubin 0.2 (0.1-1.5) mg/dL AST 17 (5-40) IU/L ALT 16 (8-54) IU/L Alkaline Phosphatase 78 (40-150) Total Protein 6.6 (6.0-8.0) g/dL Albumin 4.1 (3.5-5.0) g/dL Globulin 2.5 (2.0-3.5) g/dL Albumin/Globulin Ratio 1.6 (1.3-2.8) Urine Opiates Screen NEGATIVE (NEGATIVE) Ur Oxycodone Screen NEGATIVE (NEGATIVE) Urine Methadone Screen NEGATIVE (NEGATIVE) Ur Barbiturates Screen NEGATIVE (NEGATIVE) Ur Phencyclidine Scrn NEGATIVE (NEGATIVE) Ur Amphetamine Screen NEGATIVE (NEGATIVE) U Methamphetamines Scrn NEGATIVE (NEGATIVE) U Benzodiazepines Scrn POSITIVE (NEGATIVE) U Cocaine Metab Screen NEGATIVE (NEGATIVE) U Marijuana (THC) Screen POSITIVE (NEGATIVE) 01/16/17 Range/Units 04:55 WBC (4.0-11.0) K/uL RBC (4.50-5.90) M/uL Hgb (13.0-17.0) g/dL Hct (38.0-50.0) % MCV (80.0-98.0) fL MCH (27.0-32.0) pg MCHC (31.0-37.0) g/dL RDW Std Deviation (28.0-62.0) fl RDW Coeff of Jovanni (11.0-15.0) % Plt Count (150-400) K/uL MPV (7.40-12.00) fL Neut % (Auto) (48.0-80.0) % Lymph % (Auto) (16.0-40.0) % [place] % (Auto) (0.0-15.0) % Eos % (Auto) (0.0-7.0) % Baso % (Auto) (0.0-1.5) % Neut # (Auto) (1.4-5.7) K/uL Lymph # (Auto) (0.6-2.4) K/uL [place] # (Auto) (0.0-0.8) K/uL Eos # (Auto) (0.0-0.7) K/uL Baso # (Auto) (0.0-0.1) K/uL Nucleated RBC % /100WBC Nucleated RBCs # K/uL Sodium 138 (136-146) mmol/L Potassium 4.1 (3.5-5.1) mmol/L Chloride 100 (98-110) mmol/L Carbon Dioxide 29 (21-31) mmol/L BUN 5 L (6.0-23.0) mg/dL Creatinine 0.8 (0.6-1.5) mg/dL Est Cr Clr Drug Dosing 125.16 mL/min Estimated GFR (MDRD) > 60.0 ml/min Glucose 92 (60-110) mg/dL Calcium 9.3 (8.8-10.8) mg/dL Total Bilirubin (0.1-1.5) mg/dL AST (5-40) IU/L ALT (8-54) IU/L Alkaline Phosphatase (40-150) Total Protein (6.0-8.0) g/dL Albumin (3.5-5.0) g/dL Globulin (2.0-3.5) g/dL Albumin/Globulin Ratio (1.3-2.8) Urine Opiates Screen (NEGATIVE) Ur Oxycodone Screen (NEGATIVE) Urine Methadone Screen (NEGATIVE) Ur Barbiturates Screen (NEGATIVE) Ur Phencyclidine Scrn (NEGATIVE) Ur Amphetamine Screen (NEGATIVE) U Methamphetamines Scrn (NEGATIVE) U Benzodiazepines Scrn (NEGATIVE) U Cocaine Metab Screen (NEGATIVE) U Marijuana (THC) Screen (NEGATIVE) Joao Results Last 24 Hours: Microbiology 01/15/17 08:28 Aerobic Blood Culture - Preliminary Blood - Venous NO GROWTH AFTER 1 DAY Anaerobic Blood Culture - Preliminary NO GROWTH AFTER 1 DAY Med Orders - Current: Current Medications Acetaminophen (Tylenol) 650 mg PO Q4H PRN PRN Reason: Pain (Mild 1-3)/fever Last Admin: 01/15/17 14:28 Dose: 650 mg Enoxaparin Sodium (Lovenox) 40 mg SUBCUT DAILY [facility] Last Admin: 01/15/17 12:25 Dose: 40 mg Hydromorphone HCl (Dilaudid) 1 mg IVPUSH Q4H PRN PRN Reason: Pain (severe 7-10) Last Admin: 01/16/17 06:46 Dose: 1 mg Piperacillin Sod/Tazobactam (Sod 3.375 gm/ Sodium Chloride) 50 mls @ 100 mls/ hr IV Q6H [facility] Last Infusion: 01/16/17 06:21 Dose: Infused Vancomycin HCl 1 gm/ Sodium (Chloride) 250 mls @ 166.667 mls/hr IV Q8H [facility] Last Infusion: 01/16/17 05:45 Dose: Infused Nicotine (Habitrol) 21 mg TRDERM DAILY [facility] Last Admin: 01/15/17 12:20 Dose: 21 mg Ondansetron HCl (Zofran Odt) 4 mg PO Q4H PRN PRN Reason: nausea, able to take PO Last Admin: 01/15/17 18:23 Dose: 4 mg Vancomycin HCl (Pharmacy To Dose - Vancomycin) 1 dose .XX ASDIRECTED [facility] Discontinued Medications Hydromorphone HCl (Dilaudid) 0.5 mg IVPUSH NOW STA Stop: 01/15/17 08:17 Last Admin: 01/15/17 08:16 Dose: 0.5 mg Hydromorphone HCl (Dilaudid) 1 mg IM ONETIME ONE Stop: 01/15/17 11:41 Last Admin: 01/15/17 12:17 Dose: Not Given Hydromorphone HCl (Dilaudid) 1 mg IVPUSH ONETIME ONE Stop: 01/15/17 12:13 Last Admin: 01/15/17 12:14 Dose: 1 mg Sodium Chloride (Normal Saline) 1,000 mls @ 999 mls/hr IV STAT ONE Stop: 01/15/17 08:59 Last Admin: 01/15/17 08:23 Dose: 999 mls/hr Vancomycin HCl 1 gm/ Sodium (Chloride) 250 mls @ 250 mls/hr IV ONETIME ONE Stop: 01/15/17 09:22 Last Admin: 01/15/17 09:17 Dose: 250 mls/hr Sodium Chloride (Normal Saline) 1,000 mls @ 125 mls/hr IV NOW STA Stop: 01/15/17 17:14 Last Admin: 01/15/17 09:16 Dose: 125 mls/hr Naloxone HCl (Narcan) 0.4 mg IVPUSH ONETIME ONE Stop: 01/15/17 09:25 Last Admin: 01/15/17 10:01 Dose: Not Given - Exam General: Alert, Oriented Lungs: Clear to Auscultation, Normal Respiratory Effort Cardiovascular: Regular Rate, Regular Rhythm GI/Abdominal Exam: Soft Extremities: Other (normal range of motion of fingers, erythema over left fifth proximal metacarpal extending to dorsum of hand, ) - Problem List Review Problem List Initiated/Reviewed/Updated: Yes - My Orders Last 24 Hours: My Active Orders 01/15/17 12:30 Vancomycin [Vancocin] 1 gm Sodium Chloride 0.9% [Normal Saline] 250 ml IV Q8H 01/16/17 11:30 VANCOMYCIN TROUGH [CHEM] Routine - Plan Plan:: 26-year-old male admitted with cellulitis of the fifth digit of the left hand. Will continue vancomycin and zosyn
[2017-01-16] MEDS: Nicotine 21 MG/24 Hr Patch TRDERM SCH (09:28)
[2017-01-16] MEDS: Enoxaparin 40 MG/0.4 ML Syringe SUBCUT SCH (09:30)
[2017-01-16] MEDS: Acetaminophen 325 MG Tab PO PRN ×2 (09:36→19:26)
[2017-01-17] MEDS: Piperacillin/Tazobactam 3.375 GM in Sodium Chloride 0.9% 50 ML IV SCH ×4 (00:11→18:10)
[2017-01-17] MEDS: HYDROmorphone 2 MG/ML Syringe IVPUSH PRN ×5 (03:54→22:24)
[2017-01-17] MEDS: Acetaminophen 325 MG Tab PO PRN ×2 (05:44→11:08)
[2017-01-17 05:53] LABS: CHLORIDE,CL 103 mmol/L (98-110); SODIUM,NA 139 mmol/L (136-146)
[2017-01-17] MEDS: Enoxaparin 40 MG/0.4 ML Syringe SUBCUT SCH (08:40)
[2017-01-17] MEDS: Nicotine 21 MG/24 Hr Patch TRDERM SCH (08:42)
[2017-01-17] MEDS: Ondansetron 4 MG Tab.DIS PO PRN (08:52)
--- NOTE | 2017-01-17 08:58 | PCM.PN ---
- Review of Systems Systems Review Comment:: note purulent drainage from hand - Patient Data Vitals - Most Recent: Last Vital Signs Temp 36.9 C 01/17/17 07:42 Pulse 106 H 01/17/17 07:42 Resp 20 01/17/17 07:42 BP 138/66 01/17/17 07:42 Pulse Ox 97 01/17/17 07:42 Weight - Most Recent: 70 kg I&O - Last 24 Hours: Intake & Output 01/16/17 01/17/17 01/17/17 22:59 06:59 14:59 Intake Total 1068 1900 Output Total 2150 2250 Balance -1082 -350 Lab Results Last 24 Hours: Laboratory Results - last 24 hr 01/16/17 01/17/17 01/17/17 Range/Units 11:21 05:18 05:18 WBC 11.03 H (4.0-11.0) K/uL RBC 5.10 (4.50-5.90) M/uL Hgb 16.3 (13.0-17.0) g/dL Hct 45.7 (38.0-50.0) % MCV 89.6 (80.0-98.0) fL MCH 32.0 (27.0-32.0) pg MCHC 35.7 (31.0-37.0) g/dL RDW Std Deviation 43.1 (28.0-62.0) fl RDW Coeff of Jovanni 13 (11.0-15.0) % Plt Count 347 (150-400) K/uL MPV 8.90 (7.40-12.00) fL Neut % (Auto) 73.6 (48.0-80.0) % Lymph % (Auto) 12.9 L (16.0-40.0) % [place] % (Auto) 11.8 (0.0-15.0) % Eos % (Auto) 1.4 (0.0-7.0) % Baso % (Auto) 0.3 (0.0-1.5) % Neut # (Auto) 8.1 H (1.4-5.7) K/uL Lymph # (Auto) 1.4 (0.6-2.4) K/uL [place] # (Auto) 1.3 H (0.0-0.8) K/uL Eos # (Auto) 0.2 (0.0-0.7) K/uL Baso # (Auto) 0.0 (0.0-0.1) K/uL Nucleated RBC % 0.0 /100WBC Nucleated RBCs # 0 K/uL Sodium 139 (136-146) mmol/L Potassium 4.3 (3.5-5.1) mmol/L Chloride 103 (98-110) mmol/L Carbon Dioxide 24 (21-31) mmol/L BUN 8 (6.0-23.0) mg/dL Creatinine 0.7 (0.6-1.5) mg/dL Est Cr Clr Drug Dosing 143.04 mL/min Estimated GFR (MDRD) > 60.0 ml/min Glucose 98 (60-110) mg/dL Calcium 9.2 (8.8-10.8) mg/dL Vancomycin Trough 10.3 (5-15) ug/mL Joao Results Last 24 Hours: Microbiology 01/15/17 08:28 Aerobic Blood Culture - Preliminary Blood - Venous NO GROWTH AFTER 2 DAYS Anaerobic Blood Culture - Preliminary NO GROWTH AFTER 2 DAYS Med Orders - Current: Current Medications Acetaminophen (Tylenol) 650 mg PO Q4H PRN PRN Reason: Pain (Mild 1-3)/fever Last Admin: 01/17/17 05:44 Dose: 650 mg Enoxaparin Sodium (Lovenox) 40 mg SUBCUT DAILY [facility] Last Admin: 01/17/17 08:40 Dose: Not Given Hydromorphone HCl (Dilaudid) 1 mg IVPUSH Q4H PRN PRN Reason: Pain (severe 7-10) Last Admin: 01/17/17 08:41 Dose: 1 mg Piperacillin Sod/Tazobactam (Sod 3.375 gm/ Sodium Chloride) 50 mls @ 100 mls/ hr IV Q6H [facility] Last Admin: 01/17/17 05:39 Dose: 100 mls/hr Vancomycin HCl 1 gm/ Sodium (Chloride) 250 mls @ 166.667 mls/hr IV Q8H [facility] Last Admin: 01/17/17 04:00 Dose: 166.6 mls/hr Nicotine (Habitrol) 21 mg TRDERM DAILY [facility] Last Admin: 01/17/17 08:42 Dose: 21 mg Ondansetron HCl (Zofran Odt) 4 mg PO Q4H PRN PRN Reason: nausea, able to take PO Last Admin: 01/17/17 08:52 Dose: 4 mg Vancomycin HCl (Pharmacy To Dose - Vancomycin) 1 dose .XX ASDIRECTED [facility] Discontinued Medications Hydromorphone HCl (Dilaudid) 0.5 mg IVPUSH NOW STA Stop: 01/15/17 08:17 Last Admin: 01/15/17 08:16 Dose: 0.5 mg Hydromorphone HCl (Dilaudid) 1 mg IM ONETIME ONE Stop: 01/15/17 11:41 Last Admin: 01/15/17 12:17 Dose: Not Given Hydromorphone HCl (Dilaudid) 1 mg IVPUSH ONETIME ONE Stop: 01/15/17 12:13 Last Admin: 01/15/17 12:14 Dose: 1 mg Sodium Chloride (Normal Saline) 1,000 mls @ 999 mls/hr IV STAT ONE Stop: 01/15/17 08:59 Last Admin: 01/15/17 08:23 Dose: 999 mls/hr Vancomycin HCl 1 gm/ Sodium (Chloride) 250 mls @ 250 mls/hr IV ONETIME ONE Stop: 01/15/17 09:22 Last Admin: 01/15/17 09:17 Dose: 250 mls/hr Sodium Chloride (Normal Saline) 1,000 mls @ 125 mls/hr IV NOW STA Stop: 01/15/17 17:14 Last Admin: 01/15/17 09:16 Dose: 125 mls/hr Naloxone HCl (Narcan) 0.4 mg IVPUSH ONETIME ONE Stop: 01/15/17 09:25 Last Admin: 01/15/17 10:01 Dose: Not Given - Exam General: Alert, Oriented Lungs: Clear to Auscultation, Normal Respiratory Effort Cardiovascular: Regular Rate, Regular Rhythm Extremities: Other (edema and erythema of dorsum of hand improving. right fifth proximal metacarpal with tiny focus of purulence that was expressed on exam) - Problem List Review Problem List Initiated/Reviewed/Updated: Yes - My Orders Last 24 Hours: My Active Orders 01/18/17 11:30 VANCOMYCIN TROUGH [CHEM] Routine - Plan Plan:: 26-year-old male admitted with cellulitis of the fifth digit of the left hand. Cellulitis is improving. We will continue vancomycin and zosyn.
--- NOTE | 2017-01-17 17:49 | PCM.PN ---
- General Info Date of Service: 01/17/17 Admission Dx/Problem (Free Text): left small finger cellulitis focalizing some into small abscess. spontaneously draining a small amount Subjective Update: improving pain and much better overall. Draining some from the left small finger wound. Obtained culture and he will start soaks. Functional Status: Reports: Pain Controlled, Tolerating Diet, Ambulating. Denies: New Symptoms - Review of Systems General: Denies: Fever Musculoskeletal: Reports: Hand Pain Skin: Reports: Other (wound draining left small finger) Neurological: Reports: No Symptoms - Patient Data Vitals - Most Recent: Last Vital Signs Temp 96.1 F 01/17/17 15:57 Pulse 89 01/17/17 15:57 Resp 20 01/17/17 15:57 BP 139/94 H 01/17/17 15:57 Pulse Ox 96 01/17/17 15:57 Weight - Most Recent: 154 lb 5.177 oz I&O - Last 24 Hours: Intake & Output 01/17/17 01/17/17 01/17/17 07:59 15:59 23:59 Intake Total 8122 590 1258 Output Total 2250 1800 Balance -350 300 -628 Lab Results Last 24 Hours: Laboratory Results - last 24 hr 01/17/17 01/17/17 Range/Units 05:18 05:18 WBC 11.03 H (4.0-11.0) K/uL RBC 5.10 (4.50-5.90) M/uL Hgb 16.3 (13.0-17.0) g/dL Hct 45.7 (38.0-50.0) % MCV 89.6 (80.0-98.0) fL MCH 32.0 (27.0-32.0) pg MCHC 35.7 (31.0-37.0) g/dL RDW Std Deviation 43.1 (28.0-62.0) fl RDW Coeff of [place]ovanni 13 (11.0-15.0) % Plt Count 347 (150-400) K/uL MPV 8.90 (7.40-12.00) fL Neut % (Auto) 73.6 (48.0-80.0) % Lymph % (Auto) 12.9 L (16.0-40.0) % [place] % (Auto) 11.8 (0.0-15.0) % Eos % (Auto) 1.4 (0.0-7.0) % Baso % (Auto) 0.3 (0.0-1.5) % Neut # (Auto) 8.1 H (1.4-5.7) K/uL Lymph # (Auto) 1.4 (0.6-2.4) K/uL [place] # (Auto) 1.3 H (0.0-0.8) K/uL Eos # (Auto) 0.2 (0.0-0.7) K/uL Baso # (Auto) 0.0 (0.0-0.1) K/uL Nucleated RBC % 0.0 /100WBC Nucleated RBCs # 0 K/uL Sodium 139 (136-146) mmol/L Potassium 4.3 (3.5-5.1) mmol/L Chloride 103 (98-110) mmol/L Carbon Dioxide 24 (21-31) mmol/L BUN 8 (6.0-23.0) mg/dL Creatinine 0.7 (0.6-1.5) mg/dL Est Cr Clr Drug Dosing 143.04 mL/min Estimated GFR (MDRD) > 60.0 ml/min Glucose 98 (60-110) mg/dL Calcium 9.2 (8.8-10.8) mg/dL Joao Results Last 24 Hours: Microbiology 01/15/17 08:28 Aerobic Blood Culture - Preliminary Blood - Venous NO GROWTH AFTER 2 DAYS Anaerobic Blood Culture - Preliminary NO GROWTH AFTER 2 DAYS Med Orders - Current: Current Medications Acetaminophen (Tylenol) 650 mg PO Q4H PRN PRN Reason: Pain (Mild 1-3)/fever Last Admin: 01/17/17 11:08 Dose: 650 mg Enoxaparin Sodium (Lovenox) 40 mg SUBCUT DAILY [facility] Last Admin: 01/17/17 08:40 Dose: Not Given Hydromorphone HCl (Dilaudid) 1 mg IVPUSH Q4H PRN PRN Reason: Pain (severe 7-10) Last Admin: 01/17/17 14:11 Dose: 1 mg Piperacillin Sod/Tazobactam (Sod 3.375 gm/ Sodium Chloride) 50 mls @ 100 mls/ hr IV Q6H [facility] Last Admin: 01/17/17 11:09 Dose: 100 mls/hr Vancomycin HCl 1 gm/ Sodium (Chloride) 250 mls @ 166.667 mls/hr IV Q8H [facility] Last Admin: 01/17/17 12:08 Dose: 166.6 mls/hr Nicotine (Habitrol) 21 mg TRDERM DAILY [facility] Last Admin: 01/17/17 08:42 Dose: 21 mg Ondansetron HCl (Zofran Odt) 4 mg PO Q4H PRN PRN Reason: nausea, able to take PO Last Admin: 01/17/17 08:52 Dose: 4 mg Vancomycin HCl (Pharmacy To Dose - Vancomycin) 1 dose .XX ASDIRECTED [facility] Discontinued Medications Hydromorphone HCl (Dilaudid) 0.5 mg IVPUSH NOW STA Stop: 01/15/17 08:17 Last Admin: 01/15/17 08:16 Dose: 0.5 mg Hydromorphone HCl (Dilaudid) 1 mg IM ONETIME ONE Stop: 01/15/17 11:41 Last Admin: 01/15/17 12:17 Dose: Not Given Hydromorphone HCl (Dilaudid) 1 mg IVPUSH ONETIME ONE Stop: 01/15/17 12:13 Last Admin: 01/15/17 12:14 Dose: 1 mg Sodium Chloride (Normal Saline) 1,000 mls @ 999 mls/hr IV STAT ONE Stop: 01/15/17 08:59 Last Admin: 01/15/17 08:23 Dose: 999 mls/hr Vancomycin HCl 1 gm/ Sodium (Chloride) 250 mls @ 250 mls/hr IV ONETIME ONE Stop: 01/15/17 09:22 Last Admin: 01/15/17 09:17 Dose: 250 mls/hr Sodium Chloride (Normal Saline) 1,000 mls @ 125 mls/hr IV NOW STA Stop: 01/15/17 17:14 Last Admin: 01/15/17 09:16 Dose: 125 mls/hr Naloxone HCl (Narcan) 0.4 mg IVPUSH ONETIME ONE Stop: 01/15/17 09:25 Last Admin: 01/15/17 10:01 Dose: Not Given - Exam General: Alert, Oriented, Cooperative, No Acute Distress Lungs: Normal Respiratory Effort Skin: Warm Wound/Incisions: Drainage (on the left small finger dorsum with milking by the patient. small opening. Minimal drainage. no signs of deeper abscess accumulating. ) Psy/Mental Status: Alert - Problem List & Annotations (1) Cellulitis of finger of left hand SNOMED Code(s): 00278797 Code(s): L03.012 - CELLULITIS OF LEFT FINGER Status: Acute Priority: High Current Visit: Yes - Problem List Review Problem List Initiated/Reviewed/Updated: Yes - My Orders Last 24 Hours: My Active Orders 01/17/17 17:41 Dressing Change [Wound Care] [RC] Q12H 01/17/17 17:42 CULTURE BODY FLUID + SMEAR [RM] Routine GRAM STAIN [RM] Routine - Plan Plan:: 26-year-old male admitted with cellulitis of the fifth digit of the left hand. Cellulitis is improving. Culture of fluid. Feeling much better overall.
[2017-01-18] MEDS: Piperacillin/Tazobactam 3.375 GM in Sodium Chloride 0.9% 50 ML IV SCH ×2 (00:32→06:00)
[2017-01-18] MEDS: HYDROmorphone 2 MG/ML Syringe IVPUSH PRN ×2 (02:37→07:28)
[2017-01-18 06:42] LABS: CHLORIDE,CL 100 mmol/L (98-110); SODIUM,NA 139 mmol/L (136-146)
[2017-01-18] MEDS: Nicotine 21 MG/24 Hr Patch TRDERM SCH (08:49)
[2017-01-18] MEDS: Enoxaparin 40 MG/0.4 ML Syringe SUBCUT SCH (08:53)
[2017-01-18 09:19] VITALS: BP 134/94
--- NOTE | 2017-01-18 10:32 | PCM.DCSUM1 ---
Discharge Summary - Hospital Course Brief History: 26-year-old male that is being admitted with cellulitis of the fifth digit of the left hand. Patient presented to the emergency room complaining of swelling and redness to the fifth digit of the left hand over the last 2 days that has been worsening. Patient cannot recall any trauma or injuries to the fifth digit. He notes pain in this digit only and denies any pain in his left wrist or other fingers. He has no history of cellulitis. He denies any history of IV drug use. Pain is described as 8 out of 10. He has had a fever over the last few days. He has been using only Tylenol or ibuprofen for pain relief. This has not helped. Apart from the acute pain he is experiencing, he denies any other concerns including headache, dizziness, chest pain, palpitations, shortness breath, wheezing, cough, abdominal pain, nausea, vomiting, cuts patient, diarrhea. In the ED, he received a dose of Dilaudid in the emergency room secondary to pain. He also received an IV fluid bolus and was started on maintenance fluids at 125 mL/hour. He was given 1 dose of vancomycin. Blood cultures were obtained. Drug screen was positive for benzodiazepines and marijuana. White blood cell count was elevated at 14,000. Lactate was normal at 1.6. CMP was unremarkable. Left hand x-ray showed soft tissue swelling at the fifth digit and no evidence of bone involvement, gas or evidence of a foreign body. Dr. Leon, plastic surgeon, was consulted on the case and does not believe that surgical intervention is needed at this time. - Discharge Data Discharge Date: 01/18/17 Discharge Disposition: Home, Self-Care 01 Condition: Good - Patient Summary/Data Consults: Consultations 01/15/17 07:30 Consult to Physician [CONS] Stat - Patient Instructions Diet: Regular Diet as Tolerated Activity: As Tolerated, Elevate Extremity (arm to help with swelling), Rest and Relax Today Showering/Bathing: May Shower Notify Provider of: Fever, Increased Pain, Swelling and Redness, Drainage, Nausea and/or Vomiting - Discharge Plan Prescriptions/Med Rec: Sulfamethoxazole/Trimethoprim [Bactrim Ds Tablet] 1 each PO BID #20 tablet Home Medications: Home Meds Acetaminophen [Tylenol] 650 mg PO Q4H PRN #0 tablet 01/18/17 [Rx] Sulfamethoxazole/Trimethoprim [Bactrim Ds Tablet] 1 each PO BID #20 tablet 01/18 [Rx] Patient Handouts: Cellulitis, Adult, [id number], Sulfamethoxazole; Trimethoprim, SMX-TMP tablets Referrals: [place] DO [Physician] - 01/22/17 11:30 am Cassi Leon MD [Physician] - 01/26/17 9:45 am - Discharge Summary/Plan Comment DC Time >30 min.: No Discharge Summary/Plan Comment: Discharge Diagnoses: Cellulitis and abscess of Vilma Lew was treated with vancomycin and Zosyn during his stay. On Wednesday and fluctuant area developed and started draining purulent drainage. Culture was obtained. Overnight patient told nursing he "dug in the wound and pulled out the core with a tweezers". He was educated on not doing this due to risk of re- infecting the area. This morning he is very eager for discharge. Fifth digit dressing removed, and hand soaked in soapy water. There is no further purulent drainage, only serous fluid. Erythema is much improved and patient reports it is pain free, moving his finger many ways and pressing on the surrounding tissues. He will be discharged home today with Bactrim for 10 more days. He is to follow up with PCP in [address] Leon to ensure good healing. He was encouraged to not dig in wound but allow it to heal. Continue soaks and dressing changes. He is to return to ED or clinic if concerns should arise. - General Info Date of Service: 01/19/17 Admission Dx/Problem (Free Text: left small finger cellulitis focalizing some into small abscess. spontaneously draining a small amount Subjective Update: Sitting in the chair, just finishing soaking his L hand. Asking to go home. No complaints of pain, no chest pain or SOB. Functional Status: Reports: Pain Controlled, Tolerating Diet, Ambulating, Urinating - Review of Systems General: Denies: Fever HEENT: Reports: No Symptoms. Denies: Headaches, Sinus Congestion Pulmonary: Reports: No Symptoms. Denies: Shortness of Breath Cardiovascular: Reports: No Symptoms. Denies: Chest Pain Gastrointestinal: Reports: No Symptoms. Denies: Abdominal Pain, Nausea, Vomiting Genitourinary: Reports: No Symptoms. Denies: Dysuria, Frequency, Burning Skin: Reports: Other (wound to L fifth digit) Neurological: Reports: No Symptoms Psychiatric: Reports: No Symptoms - Patient Data Vitals - Most Recent: Last Vital Signs Temp 98.2 F 01/18/17 08:00 Pulse 86 01/18/17 08:00 Resp 16 01/18/17 08:00 BP 134/94 H 01/18/17 08:00 Pulse Ox 97 01/18/17 08:00 Weight - Most Recent: 70 kg I&O - Last 24 hours: Intake & Output 01/17/17 01/18/17 01/18/17 22:59 06:59 14:59 Intake Total 1472 600 Output Total 1800 900 Balance -328 -300 Lab Results - Last 24 hrs: Laboratory Results - last 24 hr 01/18/17 01/18/17 Range/Units 05:26 05:26 WBC 8.21 (4.0-11.0) K/uL RBC 5.09 (4.50-5.90) M/uL Hgb 15.8 (13.0-17.0) g/dL Hct 45.8 (38.0-50.0) % MCV 90.0 (80.0-98.0) fL MCH 31.0 (27.0-32.0) pg MCHC 34.5 (31.0-37.0) g/dL RDW Std Deviation 42.7 (28.0-62.0) fl RDW Coeff of Jovanni 13 (11.0-15.0) % Plt Count 363 (150-400) K/uL MPV 9.20 (7.40-12.00) fL Neut % (Auto) 65.8 (48.0-80.0) % Lymph % (Auto) 19.5 (16.0-40.0) % Gove % (Auto) 12.1 (0.0-15.0) % Eos % (Auto) 2.4 (0.0-7.0) % Baso % (Auto) 0.2 (0.0-1.5) % Neut # (Auto) 5.4 (1.4-5.7) K/uL Lymph # (Auto) 1.6 (0.6-2.4) K/uL Gove # (Auto) 1.0 H (0.0-0.8) K/uL Eos # (Auto) 0.2 (0.0-0.7) K/uL Baso # (Auto) 0.0 (0.0-0.1) K/uL Nucleated RBC % 0.0 /100WBC Nucleated RBCs # 0 K/uL Sodium 139 (136-146) mmol/L Potassium 3.9 (3.5-5.1) mmol/L Chloride 100 (98-110) mmol/L Carbon Dioxide 29 (21-31) mmol/L BUN 16 (6.0-23.0) mg/dL Creatinine 0.8 (0.6-1.5) mg/dL Est Cr Clr Drug Dosing 125.16 mL/min Estimated GFR (MDRD) > 60.0 ml/min Glucose 93 (60-110) mg/dL Calcium 9.6 (8.8-10.8) mg/dL KANDY Results - Last 24 hrs: Microbiology 01/15/17 08:28 Aerobic Blood Culture - Preliminary Blood - Venous NO GROWTH AFTER 3 DAYS Anaerobic Blood Culture - Preliminary NO GROWTH AFTER 3 DAYS 01/17/17 17:45 Gram Stain - Preliminary Abscess - Finger, Pinky, Left Med Orders - Current: Current Medications Acetaminophen (Tylenol) 650 mg PO Q4H PRN PRN Reason: Pain (Mild 1-3)/fever Last Admin: 01/17/17 11:08 Dose: 650 mg Enoxaparin Sodium (Lovenox) 40 mg SUBCUT DAILY [facility] Last Admin: 01/18/17 08:53 Dose: Not Given Hydromorphone HCl (Dilaudid) 1 mg IVPUSH Q4H PRN PRN Reason: Pain (severe 7-10) Last Admin: 01/18/17 07:28 Dose: 1 mg Piperacillin Sod/Tazobactam (Sod 3.375 gm/ Sodium Chloride) 50 mls @ 100 mls/ hr IV Q6H [facility] Last Admin: 01/18/17 06:00 Dose: 100 mls/hr Vancomycin HCl 1 gm/ Sodium (Chloride) 250 mls @ 166.667 mls/hr IV Q8H [facility] Last Admin: 01/18/17 04:16 Dose: 166.6 mls/hr Nicotine (Habitrol) 21 mg TRDERM DAILY [facility] Last Admin: 01/18/17 08:49 Dose: 21 mg Ondansetron HCl (Zofran Odt) 4 mg PO Q4H PRN PRN Reason: nausea, able to take PO Last Admin: 01/17/17 08:52 Dose: 4 mg Vancomycin HCl (Pharmacy To Dose - Vancomycin) 1 dose .XX ASDIRECTED TREVOR Discontinued Medications Hydromorphone HCl (Dilaudid) 0.5 mg IVPUSH NOW STA Stop: 01/15/17 08:17 Last Admin: 01/15/17 08:16 Dose: 0.5 mg Hydromorphone HCl (Dilaudid) 1 mg IM ONETIME ONE Stop: 01/15/17 11:41 Last Admin: 01/15/17 12:17 Dose: Not Given Hydromorphone HCl (Dilaudid) 1 mg IVPUSH ONETIME ONE Stop: 01/15/17 12:13 Last Admin: 01/15/17 12:14 Dose: 1 mg Sodium Chloride (Normal Saline) 1,000 mls @ 999 mls/hr IV STAT ONE Stop: 01/15/17 08:59 Last Admin: 01/15/17 08:23 Dose: 999 mls/hr Vancomycin HCl 1 gm/ Sodium (Chloride) 250 mls @ 250 mls/hr IV ONETIME ONE Stop: 01/15/17 09:22 Last Admin: 01/15/17 09:17 Dose: 250 mls/hr Sodium Chloride (Normal Saline) 1,000 mls @ 125 mls/hr IV NOW STA Stop: 01/15/17 17:14 Last Admin: 01/15/17 09:16 Dose: 125 mls/hr Naloxone HCl (Narcan) 0.4 mg IVPUSH ONETIME ONE Stop: 01/15/17 09:25 Last Admin: 01/15/17 10:01 Dose: Not Given - Exam General: Reports: Alert, Oriented, Cooperative, No Acute Distress Neck: Reports: Supple Lungs: Reports: Clear to Auscultation, Normal Respiratory Effort Cardiovascular: Reports: Regular Rate, Regular Rhythm GI/Abdominal Exam: Normal Bowel Sounds, Soft, Non-Tender, No Organomegaly, No Distention, No Abnormal Bruit, No Mass, Pelvis Stable Skin: Reports: Warm Wound/Incisions: Reports: Healing Well (L fifth digit, open area continues, cellulitis improved. No purulent drainage noted only serous fluid from open area ), Drainage (serous drainage), Erythema Improving Neurological: Reports: No New Focal Deficit Psy/Mental Status: Reports: Alert, Normal Affect, Normal Mood *Q Meaningful Use (DIS) - VTE *Q VTE Criteria *Q: - Stroke *Q Stroke Criteria *Q: - AMI *Q AMI Criteria *Q:
== END 2017-01-18 11:00 | disposition home or self-care (01) | DRG 603 ==
LOC: MW.ED 07:46 → MW.MS 08:24 → EEVIPCON 08:24
PROVIDERS: ADMIT Internal Medicine; ATTEND Internal Medicine
DX: L03.012 Cellulitis of left finger (principal); I10 Essential (primary) hypertension; F17.200 Nicotine dependence, unspecified, uncomplicated; Z88.8 Allergy status to other drugs, medicaments and biological substances
CPT/HCPCS: 36415; 73120-26-LT; 73120-LT; 80048; 80053; 80202; 80305; 83605; 85025; 85610; 87040; 87070; 87077; 87186; 87205; 96361; 96365; 96375; 99283; 99285-25; A9270-GY; J1170; J1650; J2543; J3370; J7040; J7050

== ENCOUNTER 2017-02-12 01:07 | Emergency (ER) | payer OTHER ==
[2017-02-12] MEDS ORDERED: Diphtheria,Pertussis(Acell),Tetanus Vaccine 0.5 ML Syringe IM ONE (01:16)
[2017-02-12] MEDS ORDERED: Bacitracin Oint 1 GM U/D Packet TOP ONE (01:19)
--- NOTE | 2017-02-12 01:20 | EDM.PDOC ---
ED HPI GENERAL MEDICAL PROBLEM - General Chief Complaint: Laceration Stated Complaint: ALCOHOL USE AND A CUT ON RIGHT THUMB Time Seen by Provider: 02/12/17 01:10 Source of Information: Reports: Patient, EMS, RN - History of Present Illness INITIAL COMMENTS - FREE TEXT/NARRATIVE: He accidentally cut the tip of his right thumb off about 3 hours ago. He has been drinking alcohol. - Related Data Allergies Allergy/AdvReac Type Severity Reaction Status Date / Time cefaclor [From Ceclor] Allergy Hives Verified 01/15/17 07:58 Home Meds: Home Meds Acetaminophen [Tylenol] 650 mg PO Q4H PRN #0 tablet 01/18/17 [Rx] Sulfamethoxazole/Trimethoprim [Bactrim Ds Tablet] 1 each PO BID #20 tablet 01/18 [Rx] Past Medical History - Past Health History Medical/Surgical History: Denies Medical/Surgical History HEENT History: Reports: None Cardiovascular History: Reports: Hypertension Respiratory History: Reports: None Gastrointestinal History: Reports: None Genitourinary History: Reports: None Musculoskeletal History: Reports: None Neurological History: Reports: None Psychiatric History: Reports: None Endocrine/Metabolic History: Reports: None Hematologic History: Reports: None Immunologic History: Reports: None Oncologic (Cancer) History: Reports: None Dermatologic History: Reports: None - Infectious Disease History Infectious Disease History: Reports: Chicken Pox - Past Surgical History Cardiovascular Surgical History: Reports: None GI Surgical History: Reports: Hernia Repair/Other Social & Family History - Family History Family Medical History: Noncontributory - Tobacco Use Smoking Status *Q: Current Every Day Smoker Years of Tobacco use: 5 Packs/Tins Daily: 0.5 Second Hand Smoke Exposure: No - Caffeine Use Caffeine Use: Reports: Coffee Caffeine Use Comment: 1cup/day - Alcohol Use Days Per Week of Alcohol Use: 1 Number of Drinks Per Day: 0 Total Drinks Per Week: 0 - Recreational Drug Use Recreational Drug Use: No Recreational Drug Type: Reports: Marijuana/Hashish, Xanax ED ROS GENERAL - Review of Systems Review Of Systems: See Below (he sometimes notes that he gets sweaty if he eats lots of sweets. He desires to be tested for diabetes.) ED EXAM, SKIN/RASH Exam: See Below Text/Narrative:: alert talkative but pleasant and cooperative lungs CTA no respiratory compromise right thumb: 0.5x0.6 cm area of avulsed soft tissue tip of thumb; normal tendon function; no bony deformity wound cleansed and dressed with topical antibiotics and bulky dressing Departure - Departure Time of Disposition: 10:40 Disposition: Home, Self-Care 01 Condition: Fair Clinical Impression: Laceration - Discharge Information Additional Instructions: follow up with Dr. Leon, plastic surgery , within two days.
[2017-02-12 01:24] VITALS: BP 118/76
== END 2017-02-12 01:46 | disposition home or self-care (01) ==
LOC: MW.ED 01:07
DX: S61.011A Laceration without foreign body of right thumb without damage to nail, initial encounter (principal); I10 Essential (primary) hypertension; F17.210 Nicotine dependence, cigarettes, uncomplicated; Z88.1 Allergy status to other antibiotic agents; W26.8XXA Contact with other sharp object(s), not elsewhere classified, initial encounter
CPT/HCPCS: 82962; 90471; 90715; 99282; 99283-25